=== PATIENT | female | born 1965 | race Asian ===

== ENCOUNTER 2019-08-27 17:01 | Outpatient (CLI) | payer OTHER | END 2019-08-27 19:49 | disposition home or self-care (01) | LOC: CT 17:01 | DX: R41.82 Altered mental status, unspecified (principal); R47.81 Slurred speech; Z91.81 History of falling ==

== ENCOUNTER 2019-12-13 15:28 | Inpatient (IN) | payer OTHER ==
[~2019-12-13] VITALS: Ht 170.2 cm; Wt 221.0 kg
[2019-12-13] VITALS (7 sets, daily range): BP systolic 84–127; BP diastolic 42–78; TEMP 99.4–100.7; Ht 170.2 cm; Wt 221.0 kg
[2019-12-13 17:11] LABS: PLATELET COUNT 222 K/uL (152-353)
[2019-12-13 17:22] LABS: POTASSIUM 3.4 mmol/L (3.6-5.2)
[2019-12-14] VITALS: BP 85/53; TEMP 98
[2019-12-14 04:00] VITALS: BP 98/59; TEMP 97.9
[2019-12-14 08:00] VITALS: BP 101/55; TEMP 99.1
[2019-12-14] MEDS ORDERED: AMLODIPINE BESYLATE PO (09:33)
[2019-12-14] MEDS ORDERED: AVAPRO300 MG PO (09:33)
[2019-12-14] MEDS ORDERED: POTASSIUM CHLO20 ME1 PO (09:35)
[2019-12-14] MEDS ORDERED: LIPITOR40 MG PO (09:36)
[2019-12-14] MEDS ORDERED: CLOP75TA2 PO (09:38)
[2019-12-14] MEDS ORDERED: BACLOFEN10 MG PO (09:39)
[2019-12-14] MEDS ORDERED: CLON0.5T36 PO (09:41)
[2019-12-14] MEDS ORDERED: HYDR10TA47A PO (09:42)
[2019-12-14] MEDS ORDERED: AMBIEN5 MG PO (09:43)
[2019-12-14] MEDS ORDERED: TRIAMCINOLON0.5 % TOP (09:44)
[2019-12-14] MEDS ORDERED: DOC-Q-LAX1 TAB PO (09:47)
[2019-12-14] MEDS ORDERED: ACID CONTROL MA20 MG PO (09:48)
[2019-12-14] MEDS ORDERED: HYDROCHLOROT12.5 M1 PO (09:49)
[2019-12-14] MEDS ORDERED: DICLOFENAC SODIUM1 % TD (09:50)
[2019-12-14] MEDS ORDERED: DRIZALMA SPRINK60 MG PO (09:55)
[2019-12-14] MEDS ORDERED: CEPHALEXIN500 MG PO (09:56)
[2019-12-14 12:00] VITALS: BP 111/58; TEMP 99.4
[2019-12-14 16:00] VITALS: BP 110/59; TEMP 98.7
[2019-12-14 20:00] VITALS: BP 97/56; TEMP 100
[2019-12-15] VITALS: BP 87/57; TEMP 98.5
[2019-12-15 04:00] VITALS: BP 98/60; TEMP 99.2
[2019-12-15 05:41] LABS: PLATELET COUNT 207 K/uL (152-353)
[2019-12-15 05:50] LABS: POTASSIUM 3.4 mmol/L (3.6-5.2)
[2019-12-15 08:00] VITALS: BP 119/64; TEMP 98.9
[2019-12-15 12:00] VITALS: BP 111/60; TEMP 98.9
[2019-12-15 16:00] VITALS: BP 83/60; TEMP 98.9
[2019-12-15 20:00] VITALS: BP 113/57; TEMP 101.3
[2019-12-16 00:11] VITALS: BP 122/64; TEMP 99.7
[2019-12-16 04:00] VITALS: BP 134/60; TEMP 99.8
[2019-12-16 04:56] LABS: PLATELET COUNT 214 K/uL (152-353)
[2019-12-16 05:03] LABS: POTASSIUM 3.7 mmol/L (3.6-5.2)
[2019-12-16 08:00] VITALS: BP 172/58; TEMP 98.9
[2019-12-16 12:00] VITALS: BP 111/68; TEMP 98.9
[2019-12-16 16:00] VITALS: BP 102/55; TEMP 98.1
[2019-12-16 20:00] VITALS: BP 146/77; TEMP 99.5
[2019-12-17] VITALS: BP 132/81; TEMP 98.9
[2019-12-17 04:00] VITALS: BP 139/69; TEMP 98.9
[2019-12-17] MEDS ORDERED: CIPRO500 MG PO (10:47)
== END 2019-12-17 12:34 | DRG 871 ==
LOC: ED 15:31 → MED/SURG 19:25
PROVIDERS: Family Medicine; ADMIT Internal Medicine
DX: A41.89 Other specified sepsis (principal); J18.8 Other pneumonia, unspecified organism; I69.354 Hemiplegia and hemiparesis following cerebral infarction affecting left non-dominant side; N39.0 Urinary tract infection, site not specified; I95.89 Other hypotension; K21.9 Gastro-esophageal reflux disease without esophagitis; E87.6 Hypokalemia; F41.8 Other specified anxiety disorders; I10 Essential (primary) hypertension; B96.5 Pseudomonas (aeruginosa) (mallei) (pseudomallei) as the cause of diseases classified elsewhere
CPT/HCPCS: 36415; 80048; 80053; 81000; 85027; 87040; 87077; 87086; 87088; 87185; 87186; 87205; 87502; 87635; 87651; 94668; 94760; 96365; 99284; J0696; J1650; J2405; U0002

== ENCOUNTER 2019-12-17 20:44 | Inpatient (IN) | payer OTHER ==
[~2019-12-17] VITALS: Ht 170.2 cm; Wt 125.3 kg
[2019-12-17 20:44] VITALS: BP 114/55; TEMP 99.2
[~2019-12-17 20:44] MED LIST: ACID CONTROL MA20 MG PO; AMBIEN5 MG PO; AMLODIPINE BESYLATE PO; AVAPRO300 MG PO; BACLOFEN10 MG PO; CEPHALEXIN500 MG PO; CIPRO500 MG PO; CLON0.5T36 PO; CLOP75TA2 PO; DICLOFENAC SODIUM1 % TD; DOC-Q-LAX1 TAB PO; DRIZALMA SPRINK60 MG PO; HYDR10TA47A PO; HYDROCHLOROT12.5 M1 PO; LIPITOR40 MG PO; POTASSIUM CHLO20 ME1 PO; TRIAMCINOLON0.5 % TOP
[2019-12-17 21:48] LABS: POTASSIUM 3.8 mmol/L (3.6-5.2)
[2019-12-17 21:51] LABS: PLATELET COUNT 351 K/uL (152-353)
[2019-12-17 22:52] VITALS: BP 114/70
[2019-12-17 23:22] VITALS: BP 113/59
[2019-12-18] VITALS (7 sets, daily range): BP systolic 98–123; BP diastolic 53–78; TEMP 97.9–99.5; Ht 170.2 cm; Wt 125.3 kg
[2019-12-18 05:18] LABS: PLATELET COUNT 326 K/uL (152-353)
[2019-12-18 05:36] LABS: POTASSIUM 3.4 mmol/L (3.6-5.2)
[2019-12-19] VITALS: BP 96/52; TEMP 98.5
[2019-12-19 04:00] VITALS: BP 101/62; TEMP 98.6
[2019-12-19 08:00] VITALS: BP 86/42; TEMP 98.3
[2019-12-19 12:00] VITALS: BP 108/45; TEMP 98.4
[2019-12-19 16:00] VITALS: BP 141/64; TEMP 99
[2019-12-19 20:00] VITALS: BP 128/80; TEMP 98.7
[2019-12-20] VITALS (7 sets, daily range): BP systolic 111–150; BP diastolic 60–91; TEMP 97.9–98.9
[2019-12-20 04:51] LABS: PLATELET COUNT 482 K/uL (152-353)
[2019-12-20 05:03] LABS: POTASSIUM 4.1 mmol/L (3.6-5.2)
[2019-12-21 04:00] VITALS: BP 142/89; TEMP 98.5
[2019-12-21 08:00] VITALS: BP 145/61; TEMP 97.9
[2019-12-21 10:10] LABS: PLATELET COUNT 530 K/uL (152-353)
[2019-12-21 10:47] LABS: POTASSIUM 4.1 mmol/L (3.6-5.2)
[2019-12-21 12:00] VITALS: BP 141/74; TEMP 98.3
[2019-12-21 16:00] VITALS: BP 127/69; TEMP 98.5
[2019-12-21 20:00] VITALS: BP 133/63; TEMP 99.1
[2019-12-22] VITALS (7 sets, daily range): BP systolic 110–131; BP diastolic 56–87; TEMP 97.9–99.1
[2019-12-22 12:00] LABS: PLATELET COUNT 630 K/uL (152-353)
[2019-12-22 12:07] LABS: POTASSIUM 4.3 mmol/L (3.6-5.2)
[2019-12-23 04:00] VITALS: BP 107/52; TEMP 97.9
[2019-12-23 08:00] VITALS: BP 122/63; TEMP 97.9
[2019-12-23 12:00] VITALS: BP 124/70; TEMP 98.1
== END 2019-12-23 17:00 | disposition home or self-care (01) | DRG 189 ==
LOC: ED 20:44 → MED/SURG 23:47
PROVIDERS: Internal Medicine; Internal Medicine Endocrinology, Diabetes & Metabolism; ADMIT Family Medicine
DX: J96.01 Acute respiratory failure with hypoxia (principal); J18.8 Other pneumonia, unspecified organism; N39.0 Urinary tract infection, site not specified; I69.354 Hemiplegia and hemiparesis following cerebral infarction affecting left non-dominant side; N30.00 Acute cystitis without hematuria; Z72.0 Tobacco use; F41.8 Other specified anxiety disorders; K21.9 Gastro-esophageal reflux disease without esophagitis; E87.6 Hypokalemia; I10 Essential (primary) hypertension; I95.89 Other hypotension
CPT/HCPCS: 36415; 36600; 80048; 80053; 82805; 83880; 85027; 85379; 85651; 87070; 87205; 87635; 94668; 94760; 99284; 99285; J0696; J1650; U0002